=== PATIENT | female | born 1965 | race African-American/Black ===

== ENCOUNTER 2017-02-12 14:57 | Emergency (ER) | payer MEDICAID, OTHER ==
[~2017-02-12] VITALS: Ht 167.6 cm; Wt 86.6 kg
[2017-02-12] MEDS ORDERED: KETOROLAC 60MG/2ML VIAL IM ONE (17:00)
[2017-02-12 18:38] VITALS: BP 128/88
== END 2017-02-12 19:15 | disposition home or self-care (01) ==
LOC: ER 16:40
DX: M54.6 Pain in thoracic spine (principal); J45.909 Unspecified asthma, uncomplicated; F17.200 Nicotine dependence, unspecified, uncomplicated; F12.10 Cannabis abuse, uncomplicated
CPT/HCPCS: 71010; 96372; 99283; J1885

== ENCOUNTER 2017-12-23 16:16 | Emergency (ER) | payer OTHER ==
[~2017-12-23] VITALS: Ht 165.1 cm; Wt 75.0 kg
[2017-12-23] MEDS ORDERED: CYCLOBENZAPRINE 10MG TABLET PO ONE (18:30)
[2017-12-23] MEDS ORDERED: IBUPROFEN 800MG TABLET PO ONE (18:30)
[2017-12-23 18:32] VITALS: BP 116/70
== END 2017-12-23 19:12 | disposition home or self-care (01) ==
LOC: ER 16:35
DX: M62.838 Other muscle spasm (principal); J45.909 Unspecified asthma, uncomplicated; F17.200 Nicotine dependence, unspecified, uncomplicated
CPT/HCPCS: 99283

== ENCOUNTER 2025-03-19 01:03 | Emergency (ER) | payer MEDICAID, OTHER ==
[~2025-03-19] VITALS: Ht 167.6 cm; Wt 88.0 kg
[2025-03-19 01:18] VITALS: O2SAT 100
[2025-03-19] MEDS: KETOROLAC 15MG/ML VIAL IM ONE (02:55)
[2025-03-19] MEDS: CYCLOBENZAPRINE 10MG TABLET PO ONE (02:55)
[2025-03-19] MEDS: LIDOCAINE 5% PATCH TOP SCH (03:00)
[2025-03-19] MEDS ORDERED: NAPR-1176 MT (03:49)
[2025-03-19] MEDS ORDERED: LIDO-53 TP (03:49)
[2025-03-19] MEDS ORDERED: CYCL5TAB3 MT (03:49)
[2025-03-19 04:08] VITALS: BP 155/88; PULSE 68; RESP 18; TEMP 36.7; O2SAT 99
== END 2025-03-19 04:38 | disposition home or self-care (01) ==
LOC: ER 01:03
DX: M25.511 Pain in right shoulder (principal); F10.90 Alcohol use, unspecified, uncomplicated; F12.90 Cannabis use, unspecified, uncomplicated; J45.909 Unspecified asthma, uncomplicated; Z79.1 Long term (current) use of non-steroidal anti-inflammatories (NSAID); Y90.9 Presence of alcohol in blood, level not specified
CPT/HCPCS: 73030; 96372; 99283; J1885; Z7610